=== PATIENT | female | born 1955 | race Caucasian/White ===

== ENCOUNTER → 2023-09-15 | Outpatient (CLI) | payer MEDICARE ==
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
== END | disposition home or self-care (01) ==
LOC: RADUSWWP 16:04
PROVIDERS: ATTEND Family Medicine
DX: R60.0 Localized edema (principal); M25.472 Effusion, left ankle

== ENCOUNTER → 2024-07-22 | Outpatient (CLI) | payer MEDICARE ==
--- NOTE | 2024-07-22 10:14 | US ---
EXAMINATION TYPE: US arterial LE multi level DATE OF EXAM: 07/22/2024 9:41 AM COMPARISONS: None. CLINICAL INDICATION: Female, 68 years old with history of L97.823 NON-PRESSURE CHRONIC ULCER OF OTHER PART O; non healing wound on left anterior alzo x 3 months from dog attack TECHNIQUE: Systolic pressures were taken of the upper and lower extremity arteries with ankle-brachia l indices and toe brachial indices calculated bilaterally. History of: Smoker: Current Smoker Hypertension: Takes medication Diabetic: Yes Hyperlipidemia: Yes TIA/CVA: N/A Previous Vascular Surgery: No CAD: N/A [place]: N/A Vascular Ulcers: Left Claudication: No Gangrene: No FINDINGS: Doppler Waveforms: Right: Biphasic within the popliteal with monophasic distally Left: Biphasic within the popliteal posterior tibial and dorsalis pedis monophasic in the digital art chuck. Brachial Artery systolic pressure: Right: 130 Left: 133 Posterior Tibial artery systolic pressure: Right: 82 Left: 156 Dorsalis Pedis artery systolic pressure: Right: 107 Left: 96 Toe artery systolic pressure: Right: 89 Left: 69 Ankle-Brachial Indices: Right: 0.8 Left: 1.2 Toe Brachial Indices: Right: 0.7 Left: 0.7 (Normal > 0.6; Mild 0.35 - 0.59, Moderate 0.12 - 0.34, Severe <0.12) IMPRESSION: 1. Monophasic waveforms within the distal arterial system while the ratios are just above normal, wit h some mild stenosis is suspected [facility], , 07/22/2024 10:11 AM
== END | disposition home or self-care (01) ==
LOC: RADUSWWP 08:45
PROVIDERS: ATTEND Family Medicine
DX: L97.823 Non-pressure chronic ulcer of other part of left lower leg with necrosis of muscle (principal); E11.622 Type 2 diabetes mellitus with other skin ulcer; R60.0 Localized edema; E11.59 Type 2 diabetes mellitus with other circulatory complications; I10 Essential (primary) hypertension; E11.69 Type 2 diabetes mellitus with other specified complication; E78.2 Mixed hyperlipidemia
CPT/HCPCS: 93923

== ENCOUNTER 2024-08-04 10:20 | Day surgery (SDC) | payer MEDICARE, OTHER ==
[~2024-08-04 10:20] MED LIST: ALPRAZolam 0.5 MG TAB PO PRN; NITROGLYCERIN SL TABS 0.4 MG TAB SUBLINGUAL PRN
[2024-08-04] MEDS: SODIUM CHLORIDE 0.9% 1,000 ML in EMPTY BAG 1 BAG IV ONE (10:36)
[2024-08-04] MEDS: IV FLUID CONTINUATION 1,000 ML IV ONE ×2 (11:04→13:10)
[2024-08-04 11:21] LABS: Glucose,Whole Blood 106 mg/dL (70-110)
[2024-08-04] MEDS: fentaNYL (PF) 50 MCG/1 ML VIAL IVP ONE ×2 (12:25→16:19)
[2024-08-04] MEDS: MIDAZOLAM 2 MG/2 ML VIAL IVP ONE ×2 (12:25→16:19)
[2024-08-04] MEDS: LIDOCAINE 1% INJ 10MG/ML (20 ML MDV) SQ ONE (12:26)
[2024-08-04] MEDS: VERAPAMIL SYRINGE (5 MG/10 ML) INTRAARTER ONE ×2 (12:30→16:19)
[2024-08-04] MEDS: HEPARIN SODIUM 1,000 UN/ML (10ML VL) IV ONE (12:35)
[2024-08-04] MEDS: HEPARIN SODIUM,PORCINE 10,000 UNIT in SODIUM CHLORIDE 0.9% 1,000 ML IRRIGATION PRN (13:03)
[2024-08-04] MEDS: IOPAMIDOL-370 100ML BTL INJ ONE ×2 (13:03→16:52)
[2024-08-04] MEDS: CLOPIDOGREL 75 MG TAB PO ONE (13:03)
[2024-08-04] MEDS: HEPARIN SODIUM,PORCINE (1 ML) 2,500 UNIT in SODIUM CHLORIDE 0.9% 250 ML IRRIGATION PRN (13:04)
--- NOTE | 2024-08-04 13:05 | P.CARDCATH ---
Date of Procedure: 08/04/24 Description of Procedure: DIAGNOSTIC CORONARY ANGIOGRAPHY and LEFT HEART CATH REPORT PROCEDURES PERFORMED: Left heart catheterization Selective coronary angiography Moderate conscious sedation 27 mins Right radial access INDICATION: 1. Abnormal stress test. 2. Congestive heart failure. 3. Ischemic cardiomyopathy BRIEF HPI: 68-year-old female presented to cardiology office because of symptoms of worsening shortness of breath and dyspnea on exertion and increased fatigue. Initial EKG showed Q waves in anteroseptal leads which got me concerned. This was followed up by echocardiogram and a Lexiscan nuclear stress test. Echocardiogram showed an EF of 35 to 40% with concerns of anteroapical hy pokinesia. Lexiscan showed large area of primarily fixed perfusion defect involving anterior and anteroapical segments. For this she was scheduled for a heart catheterization procedure. CONSENT: I have explained the procedural steps of above-mentioned procedures in layman's terms to the patient. I discussed the risks (including but not limited to stroke, emergent vascular or cardiac surgery or ), benefits and alternative therapies for the above-mentioned procedure. I discussed the risks of sedation/analgesia and blood product administration (if indicated). The patient has indicated understanding and acceptance of these risks. Conscious Sedation: Patient's ECG, heart rate, blood pressure, pulse oximetry were monitored throughout the duration of procedure under my direct supervision. 1 mg Versed and 50 mcg Fentanyl were used for induction of moderate conscious sedation. Total duration of moderate concious sedation 27 minutes. PROCEDURAL DETAILS: Patient was prepped and draped in sterile fashion. 1% lidocaine was infiltrated over the right radial artery. Right radial access was obtained via modified seldinger technique. . Medications: 5mg of verapamil was administed in the radial sheet. 4000 Units of Heparin was administed once the catheter reached the aortic root Wires and Catheter used: J wire was advanced under fluroscopy to get ot aortic root, JL 3.5 to selectively engage the left coronary ostium. JR4 to selectively engage the right coronary ostium. JR 4 catheter was used to obtain left ventricular pressure and pressure gradint across aortic valve. Angiographic images were reviewed in detail. Catheter and wire were removed. Radial sheet was flushed. Radial sheath was sutured in place. Pressure bagging with infusing heparin saline was connected to it. Patient was transferred to ESU while waiting for the ripening room attendant. Patient was loaded with 600 mg of Plavix. TECHNICAL DETAILS Total radiation: 257 mGy Total fluro time: 3 minutes Total contrast used: Isovue [60 ml] Complications: [none] Estimated Blood loss: less than 15 ml HEMODYNAMICS: Aortic Pressure: 121 over 50 mmHg. LV pressure: 123/8 mmHg. LVEDP 20 mmHg. There was no significant gradient across the aortic valve. SELECTIVE CORONARY ARTERIOGRAPHY: LEFT MAIN: The left main is short and large caliber vessel. It bifurcates into the LAD and circumflex. Left main appears angiographically normal. LEFT ANTERIOR DESCENDING CORONARY ARTERY: LAD is a large caliber vessel which wraps around to the apex. Proximal LAD appears angiographically normal. Mid LAD has a 95-99% calcific stenosis which is involving the trifurcation of a medium size septal branch (2 mm), diagonal 1 branch (2 mm). Diagonal 1 branch appears to be patent and is underfilled. Distal LAD has MEERA II flow and appears patent. There are faint right to left collaterals filling LAD retrogradely. LEFT CIRCUMFLEX CORONARY ARTERY: It is nondominant vessel. LCx gives rise to a large OM branch and proximal segment which appears patent and is tortuous. RIGHT CORONARY ARTERY: Dominant vessel. The right coronary artery is a large caliber vessel. Proximal and distal RCA are patent. Mid RCA has 10% luminal irregularities. It gives rise to PDA and PL branch which are patent. IMPRESSION: 95 to 99% mid LAD stenosis with MEERA II flow Elevated LVEDP Type 2 diabetes, HbA1c 6.4 PLAN: Plan for PCI with Dr. Padilla Further recommendations to follow Admit patient overnight Load with 600 mg Plavix Performing Physician Fernando Lambert MD, FACC, RPVI Thank you for allowing [facility] to participate in this patient's care. Feel free to reach out in case of any followup questions.
[2024-08-04] MEDS: ALPRAZolam 0.25 MG TAB PO PRN (15:06)
[2024-08-04] MEDS: LOSARTAN 25 MG TAB PO STA (15:51)
[2024-08-04] MEDS: ASPIRIN 325 MG TAB PO ONE (15:51)
[2024-08-04] MEDS: HEPARIN SODIUM 1,000 UN/ML (10ML VL) IVP ONE (16:24)
[2024-08-04] MEDS: SODIUM CHLORIDE 0.9% 1,000 ML IV ONE (16:25)
[2024-08-04] MEDS: NITROGLYCERIN 1000MCG/10ML SYRINGE INTRACORON ONE (16:36)
[2024-08-04] MEDS ORDERED: RX INFO: IV CONTRAST WAS GIVEN 1 EACH MISC MISCELLANE PRN (16:58)
[2024-08-04] MEDS ORDERED: ATROPINE SULFATE 0.1 MG/ML 10ML SYRINGE IV PRN (16:58)
[2024-08-04] MEDS ORDERED: MAG HYDROX/AL HYDROX/SIMETH 30 ML CUP PO PRN (16:58)
[2024-08-04] MEDS ORDERED: ZOLPIDEM 5 MG TAB PO PRN (16:58)
--- NOTE | 2024-08-04 17:07 | P.PRCINT ---
Percutaneous Coronary Int. - Percutaneous Coronary Intervention Percutaneous Coronary Intervention: PROCEDURES PERFORMED: Left coronary angiography, PCI mid LAD with a 2.75 x 28mm Xience OSEAS, post dilated proximally with a 4.0mm NC balloon, IVUS LAD INDICATION: Ischemic cardiomyopathy, NYHA class 3 symtpoms CONSENT:I have discussed the risks, benefits and alternative therapies for the above-mentioned procedure and for both sedation/analgesia as well as necessary blood product administration, if indicated, as they pertain to this patient. The patient has indicated understanding and acceptance of the risks and procedures discussed. PROCEDURE: After the risks, benefits and alternatives of the above mentioned procedure explained in detail with the patient, informed consent was obtained. Patient was taken to the catheterization lab and prepped and draped in usual fashion. A 6-Uzbek sheath had previously been placed in the right radial artery. The decision was made to perform PCI of the LAD. A 6 Uzbek CLS 3.5 guide was used to engage the left main. A 0.014 BMW wire as well as 0.014 whisper wire was advanced into the distal LAD. Predilation was performed with a 1.0 mm balloon and then a 2.5 mm balloon. Next intravascular ultrasound was performed which showed reference vessel 2.75 mm distally and 4.0 mm proximally. There was a very small caliber diagonal 1 branch which appeared approximately 1.5 mm and subtotally occluded and was jailed and felt best treated medically. A 2.75 x 28 mm drug-eluting stent was placed. The proximal and midportion were postdilated with a 4.0 mm noncompliant balloon. Final angiograms were performed. Repeat intravascular ultrasound was performed which showed well-expanded stent with no dissection. Preintervention there was 99% stenosis and MEERA II flow and postintervention there was less than 10% stenosis and MEERA-3 flow. The right radial sheath was removed and a TR band was placed with hemostasis achieved. The patient tolerated the procedure well. Patient was transported back to the post catheterization holding area in stable condition. Conscious Sedation: Patient was monitored under the direct supervision of myself for conscious sedation using Versed and fentanyl for a total duration of 32 minutes HEMODYNAMICS: Ao: 143/78 SELECTIVE CORONARY ARTERIOGRAPHY: LEFT MAIN: The left main is a large caliber vessel which bifurcates into the LAD and circumflex. There is no significant stenosis. LEFT ANTERIOR DESCENDING CORONARY ARTERY: LAD is a large caliber vessel which wraps around to the apex. There is a 99% stenosis of the mid LAD at the bifurcation of a small caliber diagonal 1 branch. Otherwise there are diffuse mild LAD irregularities with 10 to 20% stenosis. LEFT CIRCUMFLEX CORONARY ARTERY: Left circumflex is a moderate caliber vessel with mild 10 to 20% stenosis.. RIGHT CORONARY ARTERY: The right coronary artery was not imaged FINAL IMPRESSION: 1. CAD as described above with 99% mid LAD stenosis 2. S/p PCI mid LAD with a 2.75 x 28mm Xience OSEAS, post dilated proximally with a 4.0mm NC balloon PLAN: 1. Aggressive risk factor modification per most recent ACC/AHA guidelines. 2. Continue dual antiplatelets with aspirin and Plavix for 6 months
[2024-08-04] MEDS: ATORVASTATIN 80 MG TAB PO ONE (19:33)
[2024-08-04 20:38] LABS: Glucose,Whole Blood 145 mg/dL (70-110)
[2024-08-05] MEDS: SODIUM CHLORIDE 0.9% 1,000 ML in EMPTY BAG 1 BAG IV SCH (01:07)
[2024-08-05 06:36] LABS: Glucose,Whole Blood 117 mg/dL (70-110)
[2024-08-05 07:27] VITALS: BP 121/78; PULSE 75; RESP 15; TEMP 98.2
[2024-08-05 07:51] LABS: African American GFR (CKD) >90 (>60 ml/min/1.73 sqM); Non-African American GFR(CKD) 85 (>60 ml/min/1.73 sqM)
[2024-08-05] MEDS: CLOPIDOGREL 75 MG TAB PO SCH (08:13)
[2024-08-05] MEDS: METOPROLOL SUCCINATE (ER) 25 MG TAB.ER.24H PO SCH (08:13)
[2024-08-05] MEDS: ASPIRIN 81 MG PO SCH (08:13)
[2024-08-05] MEDS: LOSARTAN 25 MG TAB PO SCH (08:14)
[2024-08-05 09:05] LABS: Chol/HDL Ratio 4.07 Ratio
[2024-08-05 09:06] LABS: ALT 52 U/L (8-44); AST 51 U/L (13-35); Albumin 3.3 g/dL (3.8-4.9); Albumin/Globulin Ratio 1.43 Ratio (1.60-3.17); Alkaline Phosphatase 70 U/L (41-126); BUN/Creat Ratio 16.38 Ratio (12.00-20.00); Blood Urea Nitrogen 13.1 mg/dL (9.0-27.0); Chloride 111 mmol/L (96-109); Globulin 2.3 g/dL (1.6-3.3); Glucose 111 mg/dL (70-110); Potassium 3.9 mmol/L (3.5-5.5); Sodium 141 mmol/L (135-145); Total Bilirubin 0.3 mg/dL (0.3-1.2); Total Protein 5.6 g/dL (6.2-8.2)
[2024-08-05 09:34] LABS: NT-Pro-B-Type Natriuretic Pept 4341 pg/mL (0-125)
--- NOTE | 2024-08-05 17:10 | P.DS ---
Providers Date of admission: 08/04/2024 Attending physician: Fernando Lambert MD Consults: 08/04/24 16:59 Consult Physician Routine Consulting Provider: [facility] Consult Reason/Comments: Post Interventional Patient Do you want consulting provider notified?: Already Contacted Primary care physician: Cristi Barcenas [facility] Course: Patient presented to the hospital for an outpatient heart catheterization procedure. During heart catheterization procedure it was found that she has 95% mid LAD stenosis which required intervention. She underwent PCI of her LAD with Dr. Pandya and patient was admitted overnight under observation for monitoring her hemodynamics and her telemetry. Assessment: 95% mid LAD stenosis Ischemic cardiomyopathy Tobacco smoking Chronic congestive heart failure Pertinent Studies: Please refer to the cardiac Cath and cardiac cath intervention report Procedures: Chronic catheterization and PCI Patient Condition at Discharge: Good Plan - Discharge Summary Discharge Rx Participant: No New Discharge Prescriptions: New Spironolactone [Aldactone] 25 mg PO DAILY 90 Days #90 tablet Clopidogrel [Plavix] 75 mg PO DAILY 90 Days #90 tab Nicotine 14Mg/24Hr Patch [Habitrol] 1 patch TRANSDERM DAILY #1 kit Continue Empagliflozin [Jardiance] 25 mg PO QAM Ergocalciferol [Vitamin D2 (1250 Mcg = 36647 Iu)] 1,250 mcg PO FR Losartan [Cozaar] 25 mg PO PC-LUNCH metFORMIN HCL 500 mg PO HS Metoprolol Succinate [Metoprolol Succinate ER] 25 mg PO QAM Rosuvastatin [Crestor] 20 mg PO QAM Aspirin [Adult Low Dose Aspirin EC] 81 mg PO DAILY 90 Days #90 tab Discontinued Furosemide [Lasix] 20 mg PO QAM Discharge Medication List Empagliflozin [Jardiance] 25 mg PO QAM 08/02/24 [History] Ergocalciferol [Vitamin D2 (1250 Mcg = 38748 Iu)] 1,250 mcg PO FR 08/02/24 [History] Losartan [Cozaar] 25 mg PO PC-LUNCH 08/02/24 [History] Metoprolol Succinate [Metoprolol Succinate ER] 25 mg PO QAM 08/02/24 [History] Rosuvastatin [Crestor] 20 mg PO QAM 08/02/24 [History] metFORMIN HCL 500 mg PO HS 08/02/24 [History] Aspirin [Adult Low Dose Aspirin EC] 81 mg PO DAILY 90 Days #90 tab 01/30/25 [Rx] Clopidogrel [Plavix] 75 mg PO DAILY 90 Days #90 tab 08/05/24 [Rx] Nicotine 14Mg/24Hr Patch [Habitrol] 1 patch TRANSDERM DAILY #1 kit 08/05/24 [Rx] Spironolactone [Aldactone] 25 mg PO DAILY 90 Days #90 tablet 08/05/24 [Rx] Follow up Appointment(s)/Referral(s): Fernando Lambert MD [Medical Doctor] - 08/11/24 1:30 pm (FOLLOW UP APPOINTMENT MADE. ) Patient Instructions/Handouts: *Surgery [facility] - After Heart Catheterization - Photographic Colorist Instructions, How to Stop Smoking (DC), Moderate Sedation (DC), Heart Catheterization (DC), After Radial Heart Catheterization (GEN) Activity/Diet/Wound Care/Special Instructions: NO DRIVING FOR THREE DAYS. NO METFORMIN FOR 48 HOURS. OK TO SHOWER TOMORROW, REMOVE DRESSING FIRST. NO SOAKING IN TUB POOLS FOR FIVE DAYS TO AVOID RISK OF INFECTION. SIGNS OF INFECTION IE: FEVER RASH UNUSUAL DRAINAGE HARD KNOT OR LUMP CONTACT DR OR GO TO ER TO BE EVALUATED. AVOID PUSHING PULLING LIFTING MORE THAN 5 LBS FOR FIVE DAYS. IF PUNCTURE SITE BLEEDS, APPLY FIRM PRESURE AND GO TO ER. DO NOT DRIVE SELF. MEDICATIONS PER DR PANDYA. Discharge Disposition: HOME SELF-CARE
== END 2024-08-05 11:48 | disposition home or self-care (01) ==
LOC: CATHCVL 10:20 → 6NMEDSUR 16:49 → CATHCVL 08-05 11:48
PROVIDERS: ATTEND Student in an Organized Health Care Education/Training Program
DX: I25.10 Atherosclerotic heart disease of native coronary artery without angina pectoris (principal); I25.5 Ischemic cardiomyopathy; I50.9 Heart failure, unspecified; I11.0 Hypertensive heart disease with heart failure; R94.31 Abnormal electrocardiogram [ECG] [EKG]; E11.9 Type 2 diabetes mellitus without complications; E78.2 Mixed hyperlipidemia; F17.210 Nicotine dependence, cigarettes, uncomplicated; Z95.5 Presence of coronary angioplasty implant and graft; Z88.5 Allergy status to narcotic agent; Z79.02 Long term (current) use of antithrombotics/antiplatelets; Z79.82 Long term (current) use of aspirin; Z79.84 Long term (current) use of oral hypoglycemic drugs; Z79.899 Other long term (current) drug therapy
CPT/HCPCS: 92978; 93458; 83880; 80061; 80053; 82565; 99152; 99153; C9600; C1769 ×4; C1894; C1725 ×3; C1753; C1874; C1887; J2250; J1644 ×3; J2003; Q9967; J3010; J2305